=== PATIENT | male | born 1970 | race Hispanic/Latino ===

== ENCOUNTER 2021-05-31 17:27 | Emergency (ER) | payer SELFPAY ==
[2021-05-31 17:58] LABS: BASOPHILS % 0.6 % (0.0-1.0); HEMATOCRIT 45.5 % (38.2-49.6); HEMOGLOBIN 14.5 g/dL (14.0-18.0); MEAN CORPUSCULAR HEMOGLOBIN 30.5 pg (28-32); MEAN CORPUSCULAR HGB CONC 31.9 g/dL (31-35); MEAN CORPUSCULAR VOLUME 95.6 fL (81-99); MONOCYTES # (AUTO) 0.2 (0.2-0.8); MONOCYTES % 3.7 % (4.4-11.3); NEUTROPHILS # (AUTO) 4.2 (2.1-6.9); NEUTROPHILS % 64.4 % (38.7-80.0); PLATELET COUNT 352 x10e3/uL (140-360); RED BLOOD COUNT 4.76 x10e6/uL (4.3-5.7); RED CELL DISTRIBUTION WIDTH 12.3 % (11.7-14.4)
[2021-05-31] MEDS ORDERED: SODIUM CHLORIDE 0.9% 1000ML 1,000 ML IV ONE (18:15)
[2021-05-31 18:18] LABS: ALANINE AMINOTRANSFERASE 16 IU/L (0-55); ALBUMIN/GLOBULIN RATIO 1.3 (0.8-2.0); ALKALINE PHOSPHATASE 54 IU/L (40-150); ANION GAP 13.2 mmol/L (8-16); BLOOD UREA NITROGEN 8 mg/dL (7-26); BUN/CREATININE RATIO 10 (6-25); CALCIUM 9.2 mg/dL (8.4-10.2); CARBON DIOXIDE 26 mmol/L (22-29); CHLORIDE 107 mmol/L (98-107); CREATINE KINASE 88 IU/L (30-200); CREATININE, SERUM 0.83 mg/dL (0.72-1.25); EST GLOMERULAR FILTRATION RATE 97 ML/MIN (60-); GLUCOSE 196 mg/dL (74-118); POTASSIUM 3.2 mmol/L (3.5-5.1); SODIUM 143 mmol/L (136-145)
[2021-05-31 18:40] LABS: SALICYLATE < 5.0 mg/dL (0-30)
[2021-05-31 20:52] VITALS: BP 140/96
== END 2021-05-31 21:00 | disposition home or self-care (01) ==
LOC: ER 18:53
DX: T40.1X1A Poisoning by heroin, accidental (unintentional), initial encounter (principal)
CPT/HCPCS: 36415; 71045; 80053; 80320; 80329 ×2; 82550; 82553; 84484; 85025; 93005; 99284; J7030